=== PATIENT | male | born 1985 | race Caucasian/White ===

== ENCOUNTER 2020-10-29 02:43 | Emergency (ER) | payer OTHER, SELFPAY ==
[~2020-10-29] VITALS: Ht 180.3 cm; Wt 124.7 kg
--- NOTE | 2020-10-29 03:00 | NUR ---
Patient to ER tent for evaluation.
[2020-10-29 03:01] VITALS: BP_SYST 172
--- NOTE | 2020-10-29 03:05 | NUR ---
Patient brought in accompanied by [facility] [place] for medical clearance and blood alcohol draw. Patient reports being covid + 10 days ago but refuses to give any other information. Patient is refusing Covid Antigen test and accucheck. Patient reports hx of DM. Denies any pain. Patient voiced no complaints at this time.
--- NOTE | 2020-10-29 03:20 | NUR ---
Patient now consenting to blood draw and covid test. Consent signed and witnessed by [place] Dunn #[id number].
--- NOTE | 2020-10-29 03:23 | NUR ---
Written and verbal consent obtained from patient for blood alcohol, name and verified by patient. Disinfected patient's skin with iodine that did not contain alcohol or other volatile organic compound. Collected the blood from the subject named by venipuncture, in the presence of Officer Shaun # [id number] Used a sterile, dry hypodermic needle and dry vacuum blood collection. Two dry vacuum blood collection was supplied by the officer named above. Withdrew a specimen of blood from right antecubital of the subject named above. Inverted both blood tubes several times to ensure that the preservative and anticoagulant were thoroughly mixed in the blood specimen. I initialed both blood tube labels for identification. The labeled blood tubes were handed directly to the Officer named above. The blood tubes stopper remained in place while I had possession of the blood tubes. The Officer placed tubes into envelope unable to seal at this time. [place] does not have the evidence tape. Patient tolerated well, bandage applied, and bleeding controlled.
--- NOTE | 2020-10-29 04:15 | NUR ---
Dr. Mayberry chairside for pt frankal
[2020-10-29 05:40] VITALS: BP_SYST 172
--- NOTE | 2020-10-29 05:40 | NUR ---
Note poojaone in EDM - 10/29/20 at 0541 by KANG Patient given written and verbal discharge instructions and verbalizes understanding. ER discussed with patient the results and treatment provided. Patient in stable condition. ID arm band removed. Patient educated on pain management and to follow up with PMD. Pain Scale 0/10 Opportunity for questions provided and answered.
--- NOTE | 2020-10-29 05:40 | NUR ---
Patient given written and verbal discharge instructions and verbalizes understanding. ER MD discussed with patient the results and treatment provided. Patient in stable condition. ID arm band removed. Patient educated on pain management and to follow up with PMD. Pain Scale 0/10 Opportunity for questions provided and answered.
== END 2020-10-29 05:40 | disposition home or self-care (01) ==
LOC: SED 02:43
DX: B34.9 Viral infection, unspecified (principal); E11.9 Type 2 diabetes mellitus without complications; Z20.822 Contact with and (suspected) exposure to COVID-19
CPT/HCPCS: 36415; 71045; 99284